=== PATIENT | female | born 1945 | race Caucasian/White ===

== ENCOUNTER → 2017-02-08 09:26 | Day surgery (SDC) | payer MEDICARE ==
[~2017-02-08 09:26] MED LIST: Acetaminophen TAB* 325 MG PO PRN; Buffered Lidocaine 0.9% SYRIN* 5 ML/SYR SYRINGE ONE; Dexamethasone IV* 4 MG/ML 1 ML (4 MG) IV SLOW PU ONE; Dexamethasone IV* 4 MG/ML 1 ML (4 MG) ONE; Famotidine IV* 10 MG/ML 2 ML (20 mg) IV ONE; Famotidine IV* 10 MG/ML 2 ML (20 mg) ONE; HYDROcodone/ACETAMIN 5-325 MG* 1 TAB PO PRN; Ketorolac INJ* 30 MG/ML 1 ML VIAL IV PRN; Lidocaine 1% INJ* 10 MG/ML 30 ML SDV ONE; Lidocaine 1% MPF wEPI 200,000* 30 ML SDV ONE; Midazolam* 1 MG/ML 2 ML VIAL (2 MG) ONE; Midazolam* 1 MG/ML 5 ML VIAL (5 MG) ONE; Ondansetron INJ* 2 MG/ML VIAL ONE; PROCHLORPERAZINE INJ 5 MG/ML 2 ML VIAL IV PRN; ceFAZolin 2 GM PREMIX(*) 2 GM/50 ML BAG IVPB ONE; fentaNYL* 50 MCG/ML 2 ML VIAL (100 MCG VIAL) IV PRN; fentaNYL* 50 MCG/ML 2 ML VIAL (100 MCG VIAL) ONE; oxyCODONE TAB* 5 MG TAB PO PRN
--- NOTE | 2017-02-08 12:56 | SURGPN ---
Brief Operative Note - Surgery Procedures: Procedures Pre-OP Diagnoses: metastaic Colon Ca Post-op Diagnosis: same Procedure: Insertion of powerport Surgeon: Ela Asst: none Anethesia: local, MAC Jay EBL: minimal IVF: minimal Specimen: none Drains: none 8Fr single lumen power port via R SCV
--- NOTE | 2017-02-08 13:43 | RAD ---
INDICATION: Power port placement. COMPARISON: No relevant prior exams available on the [facility] [place] PACS for comparison. TECHNIQUE: 63.6 seconds fluoroscopy. FINDINGS: Spot images document the tip of the RIGHT chest port at level of the RIGHT atrium. IMPRESSION: Procedural fluoroscopy. CPT II Codes: 6045F
[2017-02-08 14:37] VITALS: BP 134/80
--- NOTE | 2017-02-08 21:38 | OP ---
CC: Loy Cast MD; Dr. Gera Patel * DATE OF OPERATION: 02/08/17 - [facility] DATE OF : 43 SURGEON: Jose Mahmood MD MINGLER OPERATOR: None. ANESTHESIOLOGIST: Wolfgang Stevens MD ANESTHESIA: Local MAC. PRE-OP DIAGNOSIS: Metastatic colon cancer. POST-OP DIAGNOSIS: Metastatic colon cancer. OPERATIVE PROCEDURE: Insertion of PowerPort. PORT: An 8-[place] PowerPort placed via the right subclavian vein. DESCRIPTION OF PROCEDURE: The patient was identified in the preoperative area, consent signed, and case discussed again with her. She understood the risks, benefits, and alternatives as well as possible complications. She was taken back to the operating room, placed in operating table in supine position. General sedation was given. Preoperative antibiotics were given. Sequential device was placed on bilateral lower extremities. The patient's right upper chest and neck were prepped and draped in the standard surgical fashion and time -out was performed. The subclavian vein was accessed, wire inserted, and under fluoroscopy noted to go through the superior vena cava. The incision was made inferior to this and a pocked made for the PowerPort. The wire was then brought in to this incision site and the vein was then dilated with the given dilators along with the split- away catheter. The 8-[place]ran tubing was then placed with ease and split-away catheter removed. Tubing was sized and cut to size and attached to the pre-flushed PowerPort, which was sutured into the pocket with 0 Surgipro sutures laterally, medially, and at the hub. The wound was then irrigated and reapproximated with 3-0 Polysorb followed by a 4-0 Monocryl subcuticular sutures. Steri-Strips and sterile dressing were applied. The patient tolerated the procedure well and was transferred to the PACU in stable condition. [id number]/[facility] #: [id number] MTDD
== END | disposition home or self-care (01) ==
LOC: OR 09:26
PROVIDERS: ATTEND Surgery
DX: C18.0 Malignant neoplasm of cecum (principal); C18.4 Malignant neoplasm of transverse colon; C78.7 Secondary malignant neoplasm of liver and intrahepatic bile duct; D50.0 Iron deficiency anemia secondary to blood loss (chronic); I10 Essential (primary) hypertension; E78.5 Hyperlipidemia, unspecified; M19.90 Unspecified osteoarthritis, unspecified site; Z85.3 Personal history of malignant neoplasm of breast
CPT/HCPCS: 71010; C1788; J0690; J1100; J1642; J2001; J2250; J2405; J3010